=== PATIENT | female | born 1975 | race Two or more races ===

== ENCOUNTER 2019-09-04 07:49 | Emergency (ER) | payer OTHER ==
[~2019-09-04] VITALS: Ht 165.1 cm; Wt 98.0 kg
[~2019-09-04 07:49] MED LIST: PROAIR HFA8.5 GM IH; SINGULAIR10 MG
== END 2019-09-04 13:42 | disposition home or self-care (01) ==
LOC: ER 07:49
DX: K52.9 Noninfective gastroenteritis and colitis, unspecified (principal)

== ENCOUNTER 2019-09-12 12:26 | Day surgery (SDC) | payer OTHER | END 2019-09-12 23:15 | disposition home or self-care (01) | LOC: CIR.AMB 12:26 | DX: D26.1 Other benign neoplasm of corpus uteri (principal) ==